=== PATIENT | male | born 1995 ===

== ENCOUNTER → 2025-03-05 09:00 | Outpatient (BNV) | payer OTHER, SELFPAY | PROVIDERS: Visit Provider Internal Medicine Cardiovascular Disease | DX: R00.2 Palpitations (principal) | CPT/HCPCS: 93244 ==

== ENCOUNTER → 2025-03-05 13:30 | Outpatient (REF) | payer OTHER, SELFPAY ==
--- NOTE | 2025-03-05 | HM_ITS ---
Conclusion: 1. Patient was monitored for total period of 3 days 2. Baseline was normal sinus rhythm with average heart of 77 beats per minute 3. No significant pauses or arrhythmias noted 4. Patient marked the counter 10 times without reporting any symptoms, correlating with sinus rhythm MTDD
== END ==
LOC: HO.CARD 13:30
PROVIDERS: Visit Provider Physician Assistant Medical
DX: R00.2 Palpitations (principal)
CPT/HCPCS: 93242